=== PATIENT | female | born 1955 | race American Indian/Alaskan Native ===

== ENCOUNTER 2018-03-30 08:19 | Outpatient (CLI) | payer OTHER ==
[2018-03-30] MEDS ORDERED: NACL 0.9% 50 ML ONE (08:46)
[2018-03-30 09:15] LABS: Blood Urea Nitrogen 16 mg/dL (7-17)
--- NOTE | 2018-03-30 10:28 | Cat Scan Report ---
CTA chest: SOB, pulmonary hypertension. IV contrast was administered with transverse pulmonary embolus protocol images through the chest into the upper abdomen. Coronal and sagittal 2-D reformatted images included. There is good opacification of the pulmonary arteries, veins, cardiac chambers, and thoracic aorta. No filling defects identified in the pulmonary circulation. Normal pulmonary anatomy. Unremarkable thoracic aorta size and contour. No evidence of axillary, hilar, or mediastinal adenopathy. The central airways are patent. No pulmonary nodules, infiltrates, or pleural changes identified. No osseous lesions of significance. Focal dense calcification in the left breast. Impression: No significant pathology and no pulmonary embolus.
== END 2018-03-30 08:20 | disposition home or self-care (01) ==
LOC: CT 08:19
PROVIDERS: ATTEND Internal Medicine Critical Care Medicine
DX: I27.20 Pulmonary hypertension, unspecified (principal)
CPT/HCPCS: 36415; 71275; 82565; 84520; Q9967

== ENCOUNTER 2022-02-05 08:39 | Outpatient (CLI) | payer MEDICARE, OTHER ==
--- NOTE | 2022-02-05 11:21 | Fluoroscopy Report ---
BARIUM SWALLOW Indication: R10.9 R13.10. Dysphagia. Technique: Single and double contrast barium technique utilized to evaluate the esophagus. FINDINGS: To begin the exam, swallowing was evaluated in the lateral position under direct fluorosco py. Swallowing was normal. No mucosal irregularity, mass, mass effect, or critical stenosis. There were no abnormal tertiary c ontractions as seen with dysmotility. No hiatal hernia or gastroesophageal reflux. Of note, there is a moderate anterior spurring at C5-C6 disc level which exerts mild mass effect on t he posterior cervical esophagus. This is very near the level the patient describes food/pills getting stuck. IMPRESSION: Unremarkable esophagus. No mucosal lesion, mass or dysmotility. Prominent anterior disc spurring at C5-6. See above. Fluoroscopic time: 2.4 minutes Number of fluoroscopic images: 67 Signer Name: Natanael Blood Jr, MD Signed: 02/05/2022 11:17 AM Workstation Name: [id number]
== END 2022-02-05 08:40 | disposition home or self-care (01) ==
LOC: FLUORO 08:39
PROVIDERS: ATTEND Surgery
DX: R10.9 Unspecified abdominal pain (principal)
CPT/HCPCS: 74220